=== PATIENT | male | born 1960 | race Caucasian/White ===

== ENCOUNTER 2017-07-30 16:32 | Emergency (ER) | payer MEDICARE, OTHER ==
[~2017-07-30] VITALS: Ht 193 cm; Wt 110.0 kg
[2017-07-30] MEDS ORDERED: KETOROLAC 30 MG/1 ML ONE (17:28)
[2017-07-30] MEDS ORDERED: DIAZEPAM 5 MG TABLET ONE (17:28)
[2017-07-30] MEDS ORDERED: PLEASE ENTER ALLERGIES MC SCH ×2 (17:30)
[2017-07-30] MEDS ORDERED: DIAZEPAM 5 MG TABLET PO ONE (18:00)
[2017-07-30] MEDS ORDERED: KETOROLAC 30 MG/1 ML IM ONE (18:00)
[2017-07-30 19:33] VITALS: BP 132/82
== END 2017-07-30 19:43 | disposition home or self-care (01) ==
LOC: ED 17:15
DX: R20.2 Paresthesia of skin (principal)
CPT/HCPCS: 72125; 96372; 99284; J1885